=== PATIENT | male | born 1970 | race Caucasian/White ===

== ENCOUNTER 2016-12-22 10:03 | Emergency (ER) | payer OTHER ==
[2016-12-22 10:08] VITALS: BP 138/85; PULSE 79; TEMP 97.6; BMI 26.0
--- NOTE | 2016-12-22 11:07 | PDOC ---
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 Patient was told to come to emergency department for evaluation, denies any respiratory difficulty, no cough, no shortness breath , no dyspnea, no other complaints. Allergies: No known allergies Medications: None Family History: Non-contributory Social History: Denies smoking, alcohol use, or IVDU Review of Systems GENERAL/CONSTITUTIONAL: No fever or chills. No weakness. No weight change. HEAD, EYES, EARS, NOSE AND THROAT: No change in vision. No ear pain or discharge. No sore throat. CARDIOVASCULAR: No chest pain or shortness of breath. RESPIRATORY: No cough, wheezing, or hemoptysis. GASTROINTESTINAL: No nausea, vomiting, diarrhea or constipation. No rectal bleeding. GENITOURINARY: No dysuria, frequency, or change in urination. MUSCULOSKELETAL: No joint or muscle swelling or pain. No neck or back pain. SKIN AND BREASTS: No rash or easy bruising. NEUROLOGIC: No headache, vertigo, loss of consciousness, or loss of sensation. PSYCHIATRIC: No depression or anxiety. ENDOCRINE: No increased thirst. No abnormal weight change. HEMATOLOGIC/LYMPHATIC: No anemia, easy bleeding, or history of blood clots. ALLERGIC/IMMUNOLOGIC: No hives or skin allergy. No latex allergy. Physical Exam: GENERAL: The patient is awake, alert, and fully oriented, in no acute distress. HEAD: Normal with no signs of trauma. EYES: Pupils equal, round and reactive to light, extraocular movements intact, sclera anicteric, conjunctiva clear. ENT: Ears normal, nares patent, oropharynx clear without exudates. Moist mucous membranes. No uvula deviation NECK: Normal range of motion, supple without lymphadenopathy, JVD, or masses. LUNGS: Breath sounds equal, clear to auscultation bilaterally. No wheezes, and no crackles. HEART: Regular rate and rhythm, normal S1 and S2 without murmur, rub or gallop. ABDOMEN: Soft, nontender, normoactive bowel sounds. No guarding, no rebound. No masses. No bruising or abrasions MUSCULOSKELETAL: Normal range of motion, no edema. No clubbing or cyanosis. No cords, erythema, or tenderness. No CVA Tenderness with fist. NEUROLOGICAL: Cranial nerves II through XII grossly intact. Normal speech, normal gait. SKIN: Warm, Dry, normal turgor, no rashes or lesions noted. Past History - Past Medical History Allergies/Adverse Reactions: Allergies Allergy/AdvReac Type Severity Reaction Status Date / Time No Known Allergies Allergy Verified 12/22/16 10:08 Home Medications: Ambulatory Orders NK [No Known Home Medication] 12/22/16 Asthma: Yes - Immunization History Immunization Up to Date: Yes - Psycho/Social/Smoking Cessation Hx Anxiety: No Suicidal Ideation: No Smoking Status: No Smoking History: Never smoked Number of Cigarettes Smoked Daily: 0 Hx Alcohol Use: Yes (SOCIAL) Drug/Substance Use Hx: No Substance Use Type: None *Physical Exam - Vital Signs Last Vital Signs Temp Pulse Resp BP Pulse Ox 97.6 F 79 20 138/85 98 12/22/16 10:05 12/22/16 10:05 12/22/16 10:05 12/22/16 10:05 12/22/16 10:05 Medical Decision Making - Medical Decision Making 12/22/16 11:15 A/P: Patient here for evaluation of a asbestos exposure, patient is without complaint no respiratory difficulty, patient discharged to follow-up with occupational medicine as needed *DC/Admit/Observation/Transfer Diagnosis at time of Disposition: Exposure to asbestos - Discharge Dispostion Disposition: HOME Condition at time of disposition: Good Admit: No - Patient Instructions Additional Instructions: Please follow up with occupational medicine as needed.
== END 2016-12-22 11:11 | disposition home or self-care (01) ==
LOC: JERFT 10:03
DX: Z77.090 Contact with and (suspected) exposure to asbestos (principal); X58.XXXA Exposure to other specified factors, initial encounter; Y93.89 Activity, other specified; Y92.89 Other specified places as the place of occurrence of the external cause; Y99.0 Civilian activity done for income or pay
CPT/HCPCS: 99281-25

== ENCOUNTER 2017-04-25 15:24 | Emergency (ER) | payer OTHER ==
[2017-04-25 15:28] VITALS: BP 133/75; PULSE 78; TEMP 98.6; BMI 26.3
[2017-04-25] MEDS ORDERED: SULFAMETHOXAZOLE/TRIMETHOPRIM 800MG/160MG D.S. TABLET PO ONE (15:38)
[2017-04-25] MEDS ORDERED: SULFAMETHOXAZOLE/TRIMETHOPRIM 800MG/160MG D.S. TABLET ONE (15:40)
--- NOTE | 2017-04-25 15:45 | PDOC ---
History of Present Illness - General Chief Complaint: Redness To Affected Area Stated Complaint: INJURY Time Seen by Provider: 04/25/17 15:38 History Source: Patient Exam Limitations: No Limitations - History of Present Illness Initial Comments: 04/25/17 15:39 My Chief Complaint: rash mid forehead History of present illness: He is a 47 year old male with a history of asthma [employer] here today with a worsening reddened area to mid for head that started on 04/23/2017 however he felt that the area was irritated on 2016. He reports getting a new hat that he wore on 04/18/2017 that touched and irritated this area. Patient also noted that area slightly pruritic. Patient took Benadryl and has been applying cortisone cream to the area without resolution. Patient denies any history of MRSA however stepdaughter has had MRSA. Patient denies any previous fever. Patient has been feeling rundown working a lot of double shifts. Patient did have chickenpox virus. And describes the area as slightly tender when pressing down on area. 04/25/17 16:00 Timing/Duration: getting worse Severity: mild Associated Symptoms: reports: rash (mid forehead ) Past History - Past Medical History Allergies/Adverse Reactions: Allergies Allergy/AdvReac Type Severity Reaction Status Date / Time No Known Allergies Allergy Verified 04/25/17 15:26 Home Medications: Ambulatory Orders Sulfamethoxazole/Trimethoprim [Bactrim Ds -] 1 tab PO BID #14 tablet 04/25/17 Asthma: Yes COPD: No - Immunization History Immunization Up to Date: Yes - Suicide/Smoking/Psychosocial Hx Smoking Status: No Smoking History: Never smoked Number of Cigarettes Smoked Daily: 0 Hx Alcohol Use: Yes (SOCIAL) Drug/Substance Use Hx: No Substance Use Type: None Review of Systems - Review of Systems Able to Perform ROS?: Yes Constitutional: No: Symptoms Reported HEENTM: No: Symptoms Reported Respiratory: No: Symptoms reported Cardiac (ROS): No: Symptoms Reported ABD/GI: No: Symptoms Reported : No: Symptoms Reported Musculoskeletal: No: Symptoms Reported Integumentary: Yes: Erythema (mid forehead area of erythema with slightly plaque non vesicular) Neurological: No: Symptoms reported *Physical Exam - Vital Signs Last Vital Signs Temp Pulse Resp BP Pulse Ox 98.6 F 78 18 133/75 100 04/25/17 15:26 04/25/17 15:26 04/25/17 15:26 04/25/17 15:26 04/25/17 15:26 - Physical Exam General Appearance: Yes: Appropriately Dressed Integumentary: positive: Erythema (plaque mid forehead approx 4 cm diameter non vesicular) Neurologic: positive: Alert, Normal Response, Responsive Medical Decision Making - Medical Decision Making 04/25/17 16:01 He is a 47 year old male with a history of asthma [employer] here today with a worsening reddened area to mid for head that started on 04/23/2017 however he felt that the area was irritated on 04/22/2017. He reports getting a new hat that he wore on 04/18/2017 that touched and irritated this area. Patient also noted that area slightly pruritic. Patient took Benadryl and has been applying cortisone cream to the area without resolution. Patient denies any history of MRSA however stepdaughter has had MRSA. Patient denies any previous fever. Patient has been feeling rundown working a lot of double shifts. Patient did have chickenpox virus. And describes the area as slightly tender when pressing down on area. Most probable secondary infection due to area rubbing his forehead. Less lightly herpetic non vesicular, no previous fever. 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 IF AREA DEVELOPS BLISTERS *DC/Admit/Observation/Transfer Diagnosis at time of Disposition: Cellulitis, face - Discharge Dispostion Disposition: HOME Condition at time of disposition: Stable - Prescriptions Prescriptions: Sulfamethoxazole/Trimethoprim [Bactrim Ds -] 1 tab PO BID #14 tablet - Referrals - Patient Instructions Additional Instructions: Follow up with your primary care provider within the next few days Return to emergency room if tiny blisterlike formations develop at rash site Avoid scratching area involved on face, if you must touch area wash her hands thoroughly afterwards Patient voiced understanding of discharge instructions and all questions were answered Happy holidays to you and your family - Post Discharge Activity
== END 2017-04-25 16:02 | disposition home or self-care (01) ==
LOC: JERFT 15:24
DX: L03.211 Cellulitis of face (principal); J45.909 Unspecified asthma, uncomplicated; X58.XXXA Exposure to other specified factors, initial encounter; Y93.89 Activity, other specified; Y92.89 Other specified places as the place of occurrence of the external cause; Y99.0 Civilian activity done for income or pay
CPT/HCPCS: 99281-25

== ENCOUNTER 2017-04-26 09:39 | Emergency (ER) | payer BC, OTHER ==
[2017-04-26 09:52] VITALS: BP 131/82; PULSE 71; TEMP 98.6; BMI 26.4
--- NOTE | 2017-04-26 10:22 | PDOC ---
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 He reports he wore a new hat on 04/18 that touched and irritated the area. Patient states he has taken benadryl and applied cortisone cream to the area with no improvement. He was discharged from our facility on 04/25 and instructed to take Bactrim for one week. The patient returns today because he reports the area has become more swollen since his discharge. The patient states he has taken the bactrim for two days but has not seen any improvement. The patient reports the area is significantly smoother than before however he has noticed an associated enlarged left lymph node. The patient denies fever, headache, pruritus, or drainage from the area. Denies chills, nausea, vomit, diarrhea and constipation. Allergies: NKA Past surgical history: None reported. Social history: No reported alcohol, cigarette, or drug use. PCP: Dr. Franklin <Mirta Dunbar - Last Filed: 04/26/17 11:09> <Dayana Bejarano - Last Filed: 04/26/17 11:23> - General Chief Complaint: Allergic Reaction Stated Complaint: [employer]/ ALLERGIC REACTION/[employer] Time Seen by Provider: 04/26/17 10:06 Past History <Mirta Dunbar - Last Filed: 04/26/17 11:09> - Past Medical History Asthma: Yes COPD: No - Immunization History Immunization Up to Date: Yes - Suicide/Smoking/Psychosocial Hx Smoking Status: No Smoking History: Never smoked Have you smoked in the past 12 months: No Number of Cigarettes Smoked Daily: 0 Information on smoking cessation initiated: No Hx Alcohol Use: No Drug/Substance Use Hx: No Substance Use Type: None <Dayana Bejarano - Last Filed: 04/26/17 11:23> - Past Medical History Allergies/Adverse Reactions: Allergies Allergy/AdvReac Type Severity Reaction Status Date / Time No Known Allergies Allergy Verified 04/26/17 09:48 Home Medications: Ambulatory Orders Cephalexin Monohydrate [Keflex -] 500 mg PO Q6H #40 capsule 04/26/17 Sulfamethoxazole/Trimethoprim [Bactrim Ds -] 1 tab PO BID 04/26/17 Review of Systems - Review of Systems Able to Perform ROS?: Yes Comments:: 04/26/17 11:08 GENERAL/CONSTITUTIONAL: No fever or chills. No weakness. HEAD, EYES, EARS, NOSE AND THROAT: No change in vision. No ear pain or discharge. No sore throat. CARDIOVASCULAR: No chest pain or shortness of breath. RESPIRATORY: No cough, wheezing, or hemoptysis. GASTROINTESTINAL: No nausea, vomiting, diarrhea or constipation. GENITOURINARY: No dysuria, frequency, or change in urination. MUSCULOSKELETAL: No joint or muscle swelling or pain. No neck or back pain. SKIN: (+) Enlarged lesion to left forehead. (+) Enlarged left lymph node NEUROLOGIC: No headache, vertigo, loss of consciousness, or change in strength/ sensation. ENDOCRINE: No increased thirst. No abnormal weight change. HEMATOLOGIC/LYMPHATIC: No anemia, easy bleeding, or history of blood clots. ALLERGIC/IMMUNOLOGIC: No hives or skin allergy. <Mirta Dunbar - Last Filed: 04/26/17 11:09> *Physical Exam - Vital Signs Last Vital Signs Temp Pulse Resp BP Pulse Ox 98.6 F 71 18 131/82 100 04/26/17 09:48 04/26/17 09:48 04/26/17 09:48 04/26/17 09:48 04/26/17 09:48 <Mirta Dunbar - Last Filed: 04/26/17 11:09> - Vital Signs Last Vital Signs Temp Pulse Resp BP Pulse Ox 98.6 F 71 18 131/82 100 04/26/17 09:48 04/26/17 09:48 04/26/17 09:48 04/26/17 09:48 04/26/17 09:48 - Physical Exam Comments: GENERAL: Awake, alert, and fully oriented, in no acute distress. HEAD: No signs of trauma. +Small erythematous lesion to L forehead with surrounding swelling. EYES: PERRLA, EOMI, sclera anicteric, conjunctiva clear. ENT: Auricles normal inspection, hearing grossly normal, nares patent, oropharynx clear without exudates. Moist mucosa. NECK: Normal ROM, supple, no JVD or masses. +L anterior cervical nodes. LUNGS: Breath sounds equal, clear to auscultation bilaterally. No wheezes, and no crackles. HEART: Regular rate and rhythm, normal S1 and S2, no murmurs, rubs or gallops. ABDOMEN: Soft, nontender, normoactive bowel sounds. No guarding, no rebound. No masses. EXTREMITIES: Normal range of motion, no edema. No clubbing or cyanosis. No cords, erythema, or tenderness. NEUROLOGICAL: Cranial nerves II through XII grossly intact. Normal speech, normal gait. SKIN: Warm, Dry, normal turgor, no rashes or lesions noted. <Dayana Bejarano - Last Filed: 04/26/17 11:23> Medical Decision Making - Medical Decision Making 04/26/17 11:21 Etiology of the rash is unclear. It is not indurated or warm, which would argue against cellulitis. No abscess formation, no fluctuance. There is worsening surrounding swelling, which may indicate an allergic process (possibly to the material from the hat he wore a few days ago). The redness is 2cm in diameter at present. There is no change in the redness. There is a reactive lymph node in the neck, which could indicate either allergic or infectious process, unclear. He has taken 3 doses of bactrim, which may not be sufficient to see an effect. Will add keflex for double coverage with the bactrim. Benadryl for swelling. Recommended that he return tomorrow for reassessment. Stable for DC home. <Dayana Bejarano - Last Filed: 04/26/17 11:23> *DC/Admit/Observation/Transfer <Mirta Dunbar - Last Filed: 04/26/17 11:09> - Discharge Dispostion Admit: No <Dayana Bejarano - Last Filed: 04/26/17 11:23> Diagnosis at time of Disposition: Skin lesion - Discharge Dispostion Disposition: HOME Condition at time of disposition: Stable - Prescriptions Prescriptions: Cephalexin Monohydrate [Keflex -] 500 mg PO Q6H #40 capsule - Referrals Referrals: Buzz Franklin [Primary Care Provider] - - Patient Instructions Printed Discharge Instructions: DI for Rash Additional Instructions: Please return to have the rash evaluated again tomorrow. If you develop fever, severe pain, blisters, or any other concerning symptoms, return to the ER immediately. - Post Discharge Activity
[2017-04-26] MEDS ORDERED: diphenhydrAMINE HCL 25 MG CAPSULE (FP) PO ONE ×2 (11:04→11:19)
[2017-04-26] MEDS ORDERED: CEPHALEXIN MONOHYDRATE 500 MG CAPSULE (UD) PO ONE (11:04)
[2017-04-26] MEDS ORDERED: CEPHALEXIN MONOHYDRATE 250 MG CAPSULE (FP) ONE (11:20)
== END 2017-04-26 11:32 | disposition home or self-care (01) ==
LOC: JER 09:39
DX: L98.8 Other specified disorders of the skin and subcutaneous tissue (principal)
CPT/HCPCS: 99283-25